=== PATIENT | female | born 1930 | race Caucasian/White ===

== ENCOUNTER 2018-04-01 10:14 | Emergency (ER) | payer OTHER ==
--- NOTE | 2018-04-01 11:14 | RAD REPORT ---
EXAM DESCRIPTION: RAD - Chest Single View - 04/01/2018 10:47 am CLINICAL HISTORY: Trauma, chest pain. COMPARISON: 07/24/2010 FINDINGS: Portable technique limits examination quality. Backboard artifact is present. Calcified breast implants are noted. The lungs are grossly clear. The heart is normal in size.
[2018-04-01 11:15] LABS: Absolute Monocytes 1.3 K/uL (0.1-1.3); Basophils % 0.5 % (0-1.3); Eosinophils % 1.6 % (0-4.4); Hematocrit 37.1 % (36.0-45.0); Lymphocytes % 15.8 % (15.3-44.8); MCH 32.6 pg (27.0-35.0); MPV 7.4 fL (7.6-11.3); Monocytes % 10.3 % (3.3-12.3); RBC Red Blood Cell Count 3.82 M/uL (3.86-4.86)
--- NOTE | 2018-04-01 11:16 | RAD REPORT ---
EXAM DESCRIPTION: RAD - Pelvis - 04/01/2018 10:44 am CLINICAL HISTORY: Trauma, pain COMPARISON: None. FINDINGS: AP pelvis, left hip and left femur-multiple projections. Bilateral hip arthroplasties are noted. Inferior to the femoral component stem on the left is an obli que fracture of the femoral shaft. The fracture is mildly displaced. No dislocation or additional fra cture identified.
--- NOTE | 2018-04-01 11:18 | ER ---
Nurse's Notes [facility] Name: Jannet Donis Age: 87 yrs Sex: Female : 1930 Arrival Date: 04/01/2018 Time: 10:10 Bed 3 Private MD: Diagnosis: Mid-shft left femur fracture Presentation: 04/01 10:06 Presenting complaint: EMS states: Pt had an unwitnessed fall from standing position, on sv EMS arrival left leg shortened and rotated outward. Pt stated that she was going around her bed and tripped on her bed. Pt denies head injury and LOC. A\\T\\O x2, pt's normal. Neurovascular WNL. 20 G L AC, Fentanyl 100 mcg total given and Zofran 4 mg IVP given. BS-124 BP 140/80. Care prior to arrival: Splint applied. traction splint to left leg applied by EMS. Medication(s) given: zofran 4 mg, Fentanyl 100 mcg IV initiated. 20 GA, in the left antecubital area, Glucose check: 124. Mechanism of Injury: Fall from standing position. Trauma event details: Injury occurred in the [facility], Injury occurred: at home. Injury occurred: April 01, 2018 Injury occurred at: 09:15. 10:06 Acuity: ROLLY 2 sv 10:06 Method Of Arrival: EMS: [facility] sv 10:06 Transition of care: patient was not received from another setting of care. Onset of sv symptoms was April 01, 2018. Risk Assessment: Do you want to hurt yourself or someone else? Patient reports no desire to harm self or others. Initial Sepsis Screen: Does the patient meet any 2 criteria? No. Patient's initial sepsis screen is negative. Does the patient have a suspected source of infection? No. Patient's initial sepsis screen is negative. Trauma Activation: Alert Physician: ED Physician; Name: ; Notified At: ; Arrived At: Physician: General Surgeon; Name: ; Notified At: ; Arrived At: Physician: Radiology; Name: ; Notified At: ; Arrived At: Physician: Respiratory; Name: ; Notified At: ; Arrived At: Physician: Lab; Name: ; Notified At: ; Arrived At: Historical: - Allergies: 10:20 No Known Allergies; sv - Home Meds: 10:20 hydroxyurea 500 mg Oral cap 1 cap every 3 days [Active]; Megace 400 mg/10 mL (40 mg/mL) sv Oral susp 5 mL once daily [Active]; midodrine 2.5 mg oral tab 1 tab 3 times per day [Active]; Hematinic Plus Vit/Minerals 106 mg iron- 1 mg oral tab 1 tab once daily [Active]; - PMHx: 10:20 ADD/ADHD; Cancer, Breast; Dementia; Depression; Hypertension; neuropathy; sv - PSHx: 10:20 defibrillator; bilateral mastectomy; sv - Social history:: Smoking status: Patient/guardian denies using tobacco. - Immunization history: Last tetanus immunization: unknown. - Ebola Screening: : Patient denies travel to an Ebola-affected area in the 21 days before illness onset. Screenin:19 Abuse screen: Denies threats or abuse. Nutritional screening: No deficits noted. tw2 Tuberculosis screening: No symptoms or risk factors identified. Fall Risk Secondary diagnosis (15 points) dementia. Primary Survey: 10:15 A: Airway: patent. Breathing/Chest: Respiratory pattern: regular, Respiratory effort: tw2 spontaneous, unlabored, Breath sounds: clear, bilaterally. Chest inspection: symmetrical rise and fall of the chest. Circulation: Heart tones present. Skin temperature: warm, dry. Disability Alert. 11:30 Reassessment Airway Airway Patent Breathing/Chest Respiratory pattern Regular tw2 Respiratory effort Spontaneous Unlabored Breath sounds Clear Chest inspection Symmetrical Circulation Heart tones Present Disability Alert. Secondary Survey: 10:15 HEENT: Face Other above right eyebrow swelling noted, pt states "cancer spot removed", tw2 did not hit head this fall. Gastrointestinal: No deficits noted. Abdomen is soft. : No deficits noted. Musculoskeletal: Reports pain in pelvis and left hip. Assessment: 10:15 General: Appears uncomfortable, slender, Behavior is calm, cooperative, appropriate for tw2 age. Pain: Complains of pain in left leg. Neuro: Level of Consciousness is awake, alert, obeys commands, Oriented to person, place. Cardiovascular: Denies chest pain, shortness of breath, Heart tones S1 S2 Capillary refill < 3 seconds Patient's skin is warm and dry. Respiratory: Airway is patent Respiratory effort is even, unlabored, Respiratory pattern is regular, symmetrical, Breath sounds are clear bilaterally. GI: No signs and/or symptoms were reported involving the gastrointestinal system. Abdomen is flat, Bowel sounds present X 4 quads. : No signs and/or symptoms were reported regarding the genitourinary system. EENT: No signs and/or symptoms were reported regarding the EENT system. Musculoskeletal: Range of motion: limited in left hip, left knee and left ankle Reports pain in left hip and left inguinal area and left femoral area. 11:25 Reassessment: Patient appears in no apparent distress at this time. No changes from tw2 previously documented assessment. Patient and/or family updated on plan of care and expected duration. Pain level reassessed. 12:25 Reassessment: Patient appears in no apparent distress at this time. No changes from tw2 previously documented assessment. Patient and/or family updated on plan of care and expected duration. Pain level reassessed. 13:00 Reassessment: Patient appears in no apparent distress at this time. No changes from tw2 previously documented assessment. Patient and/or family updated on plan of care and expected duration. Pain level reassessed. c/o pain, provider notified. 14:15 Reassessment: Patient appears in no apparent distress at this time. No changes from tw2 previously documented assessment. Patient and/or family updated on plan of care and expected duration. Pain level reassessed. Vital Signs: 10:14 BP 158 / 72; Pulse 74; Resp 18; Temp 98.(O); Pulse Ox 98% on R/A; Weight 52.16 kg; tw2 Height 5 ft. 4 in. (162.56 cm) (R); 10:52 BP 157 / 71; Pulse 67; Resp 19; Temp 98; Pulse Ox 97% ; sv 12:33 BP 161 / 63; Pulse 85; Resp 16; Pulse Ox 95% on R/A; tw2 12:59 BP 165 / 65; Pulse 88; Resp 17; Pulse Ox 95% on R/A; Pain 8/10; tw2 13:49 BP 138 / 68; Pulse 82; Resp 18; Pulse Ox 96% on 2 lpm NC; sv 14:15 BP 140 / 78; Pulse 84; Resp 16; Pulse Ox 97% on 2 lpm NC; tw2 10:14 Body Mass Index 19.74 (52.16 kg, 162.56 cm) tw2 Galilea Coma Score: 10:14 Eye Response: spontaneous(4). Verbal Response: oriented(5). Motor Response: obeys tw2 commands(6). Total: 15. Trauma Score (Adult): 10:14 Eye Response: spontaneous(1); Verbal Response: oriented(1); Motor Response: obeys tw2 commands(2); Systolic BP: > 89 mm Hg(4); Respiratory Rate: 10 to 29 per min(4); Galilea Score: 15; Trauma Score: 12 ED Course: 09:58 Maintain EMS IV. Dressing intact. Site clean \\T\\ dry. Gauge \\T\\ site: 20G L AC. sv 10:10 Patient arrived in ED. sv 10:10 Yosef Galvin MD is Attending Physician. kdr 10:10 phototypesetting equipment monitor on. Pulse ox on. NIBP on. sv 10:14 Aiyana Couch RN is Primary Nurse. tw2 10:15 Arm band placed on. tw2 10:17 Triage completed. sv 10:18 Patient maintains SpO2 saturation greater than 95% on room air. Thermoregulation: warm tw2 blanket given to patient. 10:21 Patient has correct armband on for positive identification. Bed in low position. Side sv rails up X2. 10:44 XRAY Chest (1 view) In Process Unspecified. EDMS 10:44 Hip Left 2 View XRAY In Process Unspecified. EDMS 10:44 Femur Left XRAY In Process Unspecified. EDMS 10:44 Pelvis XRAY In Process Unspecified. EDMS 10:44 X-ray completed. Patient tolerated procedure well. la2 10:50 Patient moved back from radiology. sv 10:50 Warm blanket given. sv 11:08 Rajan cath inserted, using sterile technique, 16 Fr., by ED staff, balloon inflated, to sv gravity drainage, urine specimen collected. returned clear yellow urine. Patient tolerated poorly. 11:53 CT completed. Patient tolerated procedure well. Patient moved back from CT. cw1 11:53 Head C Spine Cap Wo Con In Process Unspecified. EDMS 13:07 No provider procedures requiring assistance completed. Patient transferred, IV remains tw2 in place. 13:27 Report given to Amanda Tineo RN with [facility]. tw2 Administered Medications: 13:17 Drug: fentaNYL (PF) 50 mcg Route: IVP; Site: left antecubital; tw2 Intake: 10:14 PO: 0ml; Total: 0ml. tw2 Outcome: 11:17 ER care complete, transfer ordered by . kdr 13:02 Patient's length of stay in the Emergency Department was greater than 2 hours. pending tw2 transferPatient's length of stay extended due to 14:15 Transferred by ground EMS to [facility]. tw2 14:15 Condition: stable 14:15 Instructed on the need for transfer. 14:32 Patient left the ED. tw2 Addendum: 04/04/2018 08:26 Addendum: Culture Results: Positive urine culture. Phone call Attempt #1 transferring s s facility notified. NURA Doll RN. Signatures: Dispatcher [employer] EDMS Ivory Larson RN RN sv Yosef Galvin MD MD kdr Smirch, Shelby, RN RN April Ryan cw1 Aiyana Couch RN RN tw2 Josie Hess2 Corrections: (The following items were deleted from the chart) 04/01 11:07 10:52 BP 157 / 71; Pulse 67bpm; Resp 19bpm; Pulse Ox 97%; sv sv 13:01 13:00 Reassessment: Patient appears in no apparent distress at this time. No changes tw2 from previously documented assessment. Patient and/or family updated on plan of care and expected duration. Pain level reassessed. Patient is alert, oriented x 3, equal unlabored respirations, skin warm/dry/pink. tw2 13:23 12:33 BP 165 / 65; Pulse 87bpm; Resp 16bpm; Pulse Ox 94%; sv tw2 13:25 12:59 BP 165 / 65; Pulse 88bpm; Resp 17bpm; Pulse Ox 95% RA; tw2 tw2
--- NOTE | 2018-04-01 11:18 | EDPHYS ---
Physician Documentation [facility] Name: Jannet Donis Age: 87 yrs Sex: Female : 1930 Arrival Date: 04/01/2018 Time: 10:10 Bed 3 Private MD: ED Physician Yosef Galvin HPI: 04/01 10:11 This 87 yrs old Female presents to ER via Unassigned with complaints of Fall kdr Injury, Leg Injury. 10:11 The patient or guardian reports decreased range of motion, deformity, an injury, pain. kdr that occurred at home, sustained from a fall, from a standing position, was making her way around her bed when she fell - denies LOC or head injury, the left lower extremity is shortened, The patient is not able to ambulate. Patient is not able to bear weight. The complaints affect the left femoral area, left inguinal area and left hip. Onset: The symptoms/episode began/occurred just prior to arrival. Modifying factors: The symptoms are alleviated by nothing, the symptoms are aggravated by any movement. Associated signs and symptoms: Loss of consciousness: the patient experienced no loss of consciousness, Pertinent positives: None. Pertinent negatives: abdominal pain, altered mental status, headache, incontinence, shortness of breath, vomiting, weakness. Severity of symptoms: At their worst the symptoms were moderate, severe, incapacitating, just prior to arrival, in the emergency department the symptoms are unchanged. The patient has not experienced similar symptoms in the past. It is unknown whether or not the patient has recently seen a physician. The patient was placed in a traction splint by EMS which improved her pain. She was also given 100 mcg of fentanyl and Zofran CHIMNEY SWEEPER. Historical: - Allergies: 10:20 No Known Allergies; sv - Home Meds: 10:20 hydroxyurea 500 mg Oral cap 1 cap every 3 days [Active]; Megace 400 mg/10 mL (40 mg/mL) sv Oral susp 5 mL once daily [Active]; midodrine 2.5 mg oral tab 1 tab 3 times per day [Active]; Hematinic Plus Vit/Minerals 106 mg iron- 1 mg oral tab 1 tab once daily [Active]; - PMHx: 10:20 ADD/ADHD; Cancer, Breast; Dementia; Depression; Hypertension; neuropathy; sv - PSHx: 10:20 defibrillator; bilateral mastectomy; sv - Social history:: Smoking status: Patient/guardian denies using tobacco. - Immunization history: Last tetanus immunization: unknown. - Ebola Screening: : Patient denies travel to an Ebola-affected area in the 21 days before illness onset. ROS: 10:11 Constitutional: Negative for fever, chills, and weight loss, Eyes: Negative for injury, kdr pain, redness, and discharge, ENT: Negative for injury, pain, and discharge, Neck: Negative for injury, pain, and swelling, Cardiovascular: Negative for chest pain, palpitations, and edema, Respiratory: Negative for shortness of breath, cough, wheezing, and pleuritic chest pain, Abdomen/GI: Negative for abdominal pain, nausea, vomiting, diarrhea, and constipation, Back: Negative for injury and pain, : Negative for injury, bleeding, discharge, and swelling, Skin: Negative for injury, rash, and discoloration, Neuro: Negative for headache, weakness, numbness, tingling, and seizure activity. Psych: Negative for depression, anxiety, suicide ideation, homicidal ideation, and hallucinations, Allergy/Immunology: Negative for hives, rash, and allergies, Endocrine: Negative for neck swelling, polydipsia, polyuria, polyphagia, and marked weight changes, Hematologic/Lymphatic: Negative for swollen nodes, abnormal bleeding, and unusual bruising. 10:11 MS/extremity: Positive for injury or acute deformity, decreased range of motion, pain, tenderness, of the left inguinal area and left hip, She was n/v intact on initial exam distal to the possible fracture and injury. Exam: 12:31 Constitutional: This is a well developed, well nourished patient who is awake, alert, kdr and in mild distress. Head/Face: Normocephalic, atraumatic. ( the patient states that she has a cancerous lesion that is being treated on her right forehead Eyes: Pupils equal round and reactive to light, extra-ocular motions intact. Lids and lashes normal. Conjunctiva and sclera are non-icteric and not injected. Cornea within normal limits. Periorbital areas with no swelling, redness, or edema. Neck: Trachea midline, no thyromegaly or masses palpated, and no cervical lymphadenopathy. Supple, full range of motion without nuchal rigidity, or vertebral point tenderness. No Meningismus. Chest/axilla: Normal chest wall appearance and motion. Nontender with no deformity. No lesions are appreciated. Cardiovascular: Regular rate and rhythm with a normal S1 and S2. No gallops, murmurs, or rubs. Normal PMI, no JVD. No pulse deficits. Respiratory: Lungs have equal breath sounds bilaterally, clear to auscultation and percussion. No rales, rhonchi or wheezes noted. No increased work of breathing, no retractions or nasal flaring. Abdomen/GI: Soft, non-tender, with normal bowel sounds. No distension or tympany. No guarding or rebound. No evidence of tenderness throughout. Back: No spinal tenderness. No costovertebral tenderness. Full range of motion. Neuro: Awake and alert, GCS 15, oriented to person, place, time, and situation. Cranial nerves II-XII grossly intact. Motor strength 5/5 in all extremities. Sensory grossly intact. Cerebellar exam normal. Normal gait. Psych: Awake, alert, with orientation to person, place and time. Behavior, mood, and affect are within normal limits. 12:31 Musculoskeletal/extremity: Extremities: The left leg is in a traction splint. Distal circulation and neurological status are good. Vital Signs: 10:14 BP 158 / 72; Pulse 74; Resp 18; Temp 98.(O); Pulse Ox 98% on R/A; Weight 52.16 kg; tw2 Height 5 ft. 4 in. (162.56 cm) (R); 10:52 BP 157 / 71; Pulse 67; Resp 19; Temp 98; Pulse Ox 97% ; sv 12:33 BP 161 / 63; Pulse 85; Resp 16; Pulse Ox 95% on R/A; tw2 12:59 BP 165 / 65; Pulse 88; Resp 17; Pulse Ox 95% on R/A; Pain 8/10; tw2 13:49 BP 138 / 68; Pulse 82; Resp 18; Pulse Ox 96% on 2 lpm NC; sv 14:15 BP 140 / 78; Pulse 84; Resp 16; Pulse Ox 97% on 2 lpm NC; tw2 10:14 Body Mass Index 19.74 (52.16 kg, 162.56 cm) tw2 Lithia Coma Score: 10:14 Eye Response: spontaneous(4). Verbal Response: oriented(5). Motor Response: obeys tw2 commands(6). Total: 15. Trauma Score (Adult): 10:14 Eye Response: spontaneous(1); Verbal Response: oriented(1); Motor Response: obeys tw2 commands(2); Systolic BP: > 89 mm Hg(4); Respiratory Rate: 10 to 29 per min(4); Galilea Score: 15; Trauma Score: 12 MDM: 11:17 Patient medically screened. kdr 11:25 Physician consultation: Jared Springer MD was called at 11:00, was contacted at 11:00, kdr regarding consult, patient's condition, after a discussion of the case, a recommendation for transfer for higher level of care is made, States that we do not have the facilities to manage this type of fracture involving the prosthetic hip. 12:31 Data reviewed: vital signs, nurses notes, lab test result(s), radiologic studies. kdr Counseling: I had a detailed discussion with the patient and/or guardian regarding: the historical points, exam findings, and any diagnostic results supporting the discharge/admit diagnosis, lab results, radiology results, the need to transfer to another facility. 04/01 10:27 Order name: Basic Metabolic Panel; Complete Time: 12:05 kdr 04/01 10:27 Order name: CBC with Diff; Complete Time: 12:05 kdr 04/01 10:27 Order name: Creatinine for Radiology; Complete Time: 12:05 kdr 04/01 10:27 Order name: Type And Screen; Complete Time: 12:47 kdr 04/01 11:08 Order name: Urine Microscopic Only jb1 04/01 11:08 Order name: Urine Culture jb1 04/01 10:27 Order name: XRAY Chest (1 view); Complete Time: 12:05 kdr 04/01 10:27 Order name: Labs collected and sent; Complete Time: 11:08 kdr 04/01 10:27 Order name: Hip Left 2 View XRAY kdr 04/01 10:27 Order name: Femur Left XRAY kdr 04/01 10:27 Order name: Pelvis XRAY; Complete Time: 12:05 kdr 04/01 11:26 Order name: Head C Spine Cap Wo Con; Complete Time: 12:47 EDMS 04/01 11:47 Order name: Urine Dipstick--Ancillary (enter results); Complete Time: 12:47 bd 04/01 10:27 Order name: Urine Dipstick-Ancillary (obtain specimen); Complete Time: 11:08 kdr 04/01 11:11 Order name: Mohini; Complete Time: 11:11 tw2 Administered Medications: 13:17 Drug: fentaNYL (PF) 50 mcg Route: IVP; Site: left antecubital; tw2 Disposition: 04/01/18 11:17 Transfer ordered to [facility]. Diagnosis is Mid-shft left femur fracture. - Reason for transfer: Higher level of care. - Accepting physician is Vincenzo Parnell. - Condition is Stable. - Problem is new. - Symptoms have improved. Signatures: Dispatcher [employer] EDIvory Doe RN RN sv Yosef Galvin MD MD kdr Aiyana Couch RN RN tw2 Corrections: (The following items were deleted from the chart) 12:31 11:17 04/01/2018 11:17 Transfer ordered to [facility]. Diagnosis is kdr Mid-shft left femur fracture. Reason for transfer: Higher level of care. Accepting physician is Daxin. Condition is Stable. Problem is new. Symptoms have improved. kdr 12:49 12:31 04/01/2018 11:17 Transfer ordered to [facility]. Diagnosis is kdr Mid-shft left femur fracture. Reason for transfer: Higher level of care. Accepting physician is Ortho/Medicine. Condition is Stable. Problem is new. Symptoms have improved. kdr 14:32 12:49 04/01/2018 11:17 Transfer ordered to [facility]. Diagnosis is tw2 Mid-shft left femur fracture. Reason for transfer: Higher level of care. Accepting physician is Vincenzo Parnell. Condition is Stable. Problem is new. Symptoms have improved. kdr
[2018-04-01 11:25] LABS: Potassium 3.7 mEq/L (3.6-5.0)
--- NOTE | 2018-04-01 12:21 | RAD REPORT ---
EXAM DESCRIPTION: CT - Head C Spine Cap Wo Con - 04/01/2018 11:53 am CLINICAL HISTORY: Trauma, head and neck injury. Chest, abdomen and pelvis pain. COMPARISON: None. TECHNIQUE: CT head without contrast. CT cervical spine without contrast with coronal and sagittal reformatted images. CT chest, abdomen and pelvis without contrast with coronal and sagittal reformatted images of the [facility]. All CT scans are performed using dose optimization technique as appropriate and may include automated exposure control or mA/KV adjustment according to patient size. FINDINGS: CT HEAD WITHOUT CONTRAST: No intracranial hemorrhage, hydrocephalus or extra-axial fluid collection. Moderate generalized brain atrophy is present with moderate periventricular and deep white matter chronic microvascular ischemi c changes. No areas of brain edema or midline shift. The paranasal sinuses and mastoids are clear. The calvarium is intact. CT CERVICAL SPINE WITHOUT CONTRAST: No fracture or subluxation. Diffuse cervical spondylosis is noted. The prevertebral soft tissues are normal in thickness. CT CHEST, ABDOMEN, PELVIS WITHOUT CONTRAST: NOTE: Lack of contrast is a significant limitation in the assessment of trauma related findings. Spec ifically, solid organ, vascular and bowel evaluation is significantly limited. Emphysematous changes are present with scarring in the right apex.Small hiatal hernia.No pneumothorax or pericardial/pleural fluid. No evidence of intra-abdominal visceral injury, free fluid or free air is seen within the above detai led limitations. Gallstones are noted. Advanced colonic diverticulosis is seen without diverticulitis. Mild wedge compression deformity of T12 is noted with sclerosis, age undetermined but favored to be c hronic. IMPRESSION: Mild wedge compression deformity of T12 vertebral body with sclerosis, favored to be chr onic. If the patient has significant back pain, MR follow-up may be useful for further assessment. Cholelithiasis. Significant diverticulosis coli without diverticulitis.
[2018-04-01 12:43] LABS: Urine Blood NEGATIVE (NEG); Urine Glucose NEGATIVE (NEG); Urine Protein 1+ (NEG); Urine Specific Gravity >1.030 (1.005-1.030); Urine pH 5.5 (5.0-7.0)
[2018-04-01 13:02] LABS: Urine Bacteria 20-50 /HPF (<20); Urine Culture Reflex Order REFLEXED; Urine RBC <5 /HPF (NONE SEEN)
[2018-04-01] MEDS ORDERED: FENTANYL CITR 100 MCG/2 ML ONE (13:17)
[2018-04-01 14:39] VITALS: TEMP 98
[2018-04-01 14:44] VITALS: BP 138/68; O2SAT 96
--- NOTE | 2018-04-03 08:57 | RAD REPORT ---
EXAM DESCRIPTION: RAD - Hip Left 2 View - 04/01/2018 10:44 am CLINICAL HISTORY: Trauma, pain COMPARISON: None. FINDINGS: AP pelvis, left hip and left femur-multiple projections. Bilateral hip arthroplasties are noted. Inferior to the femoral component stem on the left is an obli que fracture of the femoral shaft. The fracture is mildly displaced. No dislocation or additional fra cture identified.
--- NOTE | 2018-04-03 08:58 | RAD REPORT ---
EXAM DESCRIPTION: RAD - Femur Left - 04/01/2018 10:44 am CLINICAL HISTORY: Trauma, pain COMPARISON: None. FINDINGS: AP pelvis, left hip and left femur-multiple projections. Bilateral hip arthroplasties are noted. Inferior to the femoral component stem on the left is an obli que fracture of the femoral shaft. The fracture is mildly displaced. No dislocation or additional fra cture identified.
== END 2018-04-01 14:32 | disposition short-term general hospital (02) ==
LOC: ER 10:14
DX: S72.302A Unspecified fracture of shaft of left femur, initial encounter for closed fracture (principal); W18.30XA Fall on same level, unspecified, initial encounter; Y93.89 Activity, other specified; Y92.003 Bedroom of unspecified non-institutional (private) residence as the place of occurrence of the external cause; I10 Essential (primary) hypertension; F32.9 Major depressive disorder, single episode, unspecified; Z85.3 Personal history of malignant neoplasm of breast; F03.90 Unspecified dementia, unspecified severity, without behavioral disturbance, psychotic disturbance, mood disturbance, and anxiety; Z90.13 Acquired absence of bilateral breasts and nipples
CPT/HCPCS: 36415; 51702; 70450; 71045; 71250; 72125; 72170; 73502; 73552; 80048; 85025; 86850; 86900; 86901; 87077; 87086; 87088; 87186; 96374; 99285; J3010; 81003; 81015

== ENCOUNTER 2018-06-09 06:00 | Day surgery (SDC) | payer OTHER ==
[2018-06-08 11:47] LABS: Absolute Lymphocytes (CBC) 1.2 K/uL (0.7-4.9); Absolute Monocytes 0.8 K/uL (0.1-1.3); Absolute Neutrophil 7.1 K/uL (1.8-8.0); Basophils % 0.5 % (0-1.3); Eosinophils % 0.7 % (0-4.4); Hematocrit 32.2 % (36.0-45.0); Lymphocytes % 13.1 % (15.3-44.8); MCH 30.8 pg (27.0-35.0); MCV 92.4 fL (80-100); MPV 7.2 fL (7.6-11.3); Monocytes % 8.2 % (3.3-12.3); RBC Red Blood Cell Count 3.49 M/uL (3.86-4.86)
[2018-06-08 12:00] LABS: Potassium 3.6 mmol/L (3.5-5.1)
--- NOTE | 2018-06-08 12:47 | EKG ---
Test Date: 2018-06-08 Test Time: 10:06:20 Steam Cleaning Machine Operator: PARUL MEASUREMENT RESULTS: Intervals: Rate: 70 SD: 162 QRSD: 124 QT: 470 QTc: 507 [place]: P: 39 SD: 162 QRS: -45 T: 22 INTERPRETIVE STATEMENTS: Normal sinus rhythm Right bundle branch block Left anterior fascicular block Bifascicular block Abnormal ECG Compared to ECG 04/06/2017 12:43:38 Right bundle-branch block now present Bifascicular block now present Incomplete right bundle-branch block no longer present Electronically Signed On 06-08-18 12:46:52 CDT by Ashvin Christianson
[2018-06-09] MEDS ORDERED: CEFAZOLIN/SWI 1gm 1 GM/10 ML SYR ONE (06:42)
[2018-06-09] MEDS ORDERED: Ringers Lactate 1,000 ML IV ONE (06:42)
--- NOTE | 2018-06-09 07:52 | P.BOP ---
Preoperative diagnosis: right knee pain with mechanical sx Postoperative diagnosis: same Primary procedure: right knee arthoscopy with MM/LM debridement Estimated blood loss: 10 cc Anesthesia: General Complications: None Transferred to: Recovery Room Condition: Good
[2018-06-09] MEDS: MORPHINE 4 MG/ML SYR ONE ×4 (07:55→08:10)
[2018-06-09] MEDS ORDERED: BUPIVACA 0.5%/EPI 0.0005%/PF 30 ML VIAL ONE (08:07)
[2018-06-09] MEDS: MEPERIDINE HCL 50 MG/ML AMP ONE ×2 (08:18→08:27)
[2018-06-09 08:39] VITALS: O2SAT 100
[2018-06-09] MEDS ORDERED: TRAMADOL 37.5mg/APAP 325mg PER TAB ONE (09:21)
[2018-06-09 09:25] VITALS: BP 128/65; TEMP 97
--- NOTE | 2018-06-09 13:13 | OP ---
Date of Procedure: 06/09/2018 Surgeon: Chico Davidson MD Preoperative Diagnosis: Right knee pain with mechanical symptoms despite conservative care, probable meniscal tears. Postoperative Diagnoses: 1.Grade 4 arthritic changes of lateral compartment with displaceable lateral meniscal tears. 2.Medial meniscal tear. Procedure: Debridement of both medial and lateral meniscal tears. Estimated Blood Loss: Less than 10 cc. Complications: There were no complications. Specimens: No pathology specimens sent. Indication For Operation: Ms. Donis is an 87-year-old female, who came to see me with significant c omplaints of pain in the right knee. This began after she received injury where she was pushing hers elf away from the table. X-rays failed to demonstrate any fractures or dislocations; however, the pa tient continued to complain of pain. She does have some arthritic changes and has been treated with injections without significant relief of symptoms. Also, medications have been used and activity res trictions. Unfortunately, her knee was so painful, it was very difficult for her to sleep, very diff icult for her to control it in anyway. She had an MRI, which demonstrated predicted meniscal tear or tears and we spoke with her son quite extensively about her advanced age, but at this point, she yenny lly could not have total knee arthroplasty, but opts for anything which could help. Therefore, arthr oscopy was offered and later options carefully and agrees to proceed. Description Of Procedure: The patient was taken to the operating room and placed in supine position. General anesthesia was obtained by staff. Following this, a well-padded tourniquet was placed on s uperior right thigh and was not used throughout the case. Right lower extremity was then prepped and draped in usual sterile fashion and was followed by placement of a superior medial arthroscopy kelli l atraumatically with 1 pass with liberation of approximately 60 cc of rather normal-appearing synovi al fluid. This was followed by placement of inferolateral arthroscopy portal. The knee was then seq uentially examined including suprapatellar pouch, medial gutters, medial compartments as well as the notch and patellofemoral joint. Pertinent findings included a tear of the anterior horn of the media l meniscus, also grade 4 chondromalacia of the lateral compartment, and also complex displaced tears in the lateral meniscus. A standard inferior medial arthroscopy portal was then placed under direct vision and was again observed all the areas with debridement of the medial and lateral menisci being performed until these are both debrided back to firm and stable on well contoured basis. The knee wa s again examined and all the above areas without any further pathology seen, which is amenable to art hroscopic intervention. The inferior arthroscopy portals were then stapled. Superior and medial art hroscopy portal was used for placement of Marcaine with epinephrine and this was then stapled. The p atient was then placed in a very well-padded sterile dressing, awakened, and taken to recovery room i n good condition. There were no complications. /BANDAR Voice ID: [id number] Report ID: [id number]
== END 2018-06-09 10:23 | disposition home or self-care (01) ==
LOC: OR 06:00
PROVIDERS: ATTEND Orthopaedic Surgery
PROC: 0SBC4ZZ Excision of Right Knee Joint, Percutaneous Endoscopic Approach (ICD-10-PCS; principal; 2018-06-09 07:00)
DX: S83.241A Other tear of medial meniscus, current injury, right knee, initial encounter (principal); S83.281A Other tear of lateral meniscus, current injury, right knee, initial encounter; F03.90 Unspecified dementia, unspecified severity, without behavioral disturbance, psychotic disturbance, mood disturbance, and anxiety; X58.XXXA Exposure to other specified factors, initial encounter; Y93.89 Activity, other specified; Y92.9 Unspecified place or not applicable; Y99.9 Unspecified external cause status
CPT/HCPCS: 01400; 29880; 36415; 80048; 85025; 93005; J0690; J2175

== ENCOUNTER 2018-06-26 10:45 | Emergency (ER) | payer OTHER ==
--- NOTE | 2018-06-26 12:37 | ER ---
Nurse's Notes [facility] Name: Jannet Donis Age: 87 yrs Sex: Female : 1930 Arrival Date: 06/26/2018 Time: 10:48 Bed 2 Private MD: Enzo Ma Diagnosis: Presentation: 06/26 11:01 Presenting complaint: Patient states: I feel two weeks ago, pain in tona hips and lower ch legs. Child states: TWO ARTIFICIAL HIPS, TWO WEEKS AGO DR MOLINA DID A SCOPE ON HER KNEE. TWO DAYS AFTER THAT SHE FELL. STILL HAVING LOWER BACK AND HIP PAIN, BUT THAT IS CHRONIC. BUT IM WORRIED BECAUSE SHE IS IN BED TOO MUCH AND NOT WALKING MUCH. HER FOLLOW UP WITH ST[facility] WAS THIS MORNING. HER KNEE IS FINE, HE SUGGESTED SHE GET AN X RAY AND CT OF LOWER BACK. Care prior to arrival: None. Mechanism of Injury: Fall FELL FROM STANDING POSITION ON TO BUTTOCKS. Trauma event details: Injury occurred in the [facility], Injury occurred: at home. Injury occurred: June 16, 2018 Injury occurred at: 14:00. 11:01 Acuity: ROLLY 3 ch 11:01 Method Of Arrival: Wheelchair 11:08 Transition of care: patient was not received from another setting of care. Onset of ch symptoms was June 16, 2018. Risk Assessment: Do you want to hurt yourself or someone else? Patient reports no desire to harm self or others. Initial Sepsis Screen: Does the patient meet any 2 criteria? No. Patient's initial sepsis screen is negative. Does the patient have a suspected source of infection? No. Patient's initial sepsis screen is negative. 12:37 Note reported that pt went back to [facility]'s office. She was seen there this morning. dm5 Trauma Activation: Not Applicable Physician: ED Physician; Name: ; Notified At: ; Arrived At: Physician: General Surgeon; Name: ; Notified At: ; Arrived At: Physician: Radiology; Name: ; Notified At: ; Arrived At: Physician: Respiratory; Name: ; Notified At: ; Arrived At: Physician: Lab; Name: ; Notified At: ; Arrived At: Historical: - Allergies: 11:06 No Known Allergies; ch - Home Meds: 11:06 bupropion HCl 300 mg Oral Tb24 1 tab twice a day [Active]; Cerovite Senior Oral tab ch daily [Active]; diclofenac 2% cream twice a day [Active]; donepezil 10 mg Oral TbDL 1 tab once daily [Active]; escitalopram oxalate 20 mg Oral tab 1 tab once daily [Active]; Floranex 1 million cell Oral tab three times a day [Active]; Foltanx RF 3 mg-35 mg-2 mg -90.314 mg Oral cap daily [Active]; gabapentin 300 mg Oral cap 1 cap 3 times per day [Active]; Hematinic Plus Vit/Minerals 106 mg iron- 1 mg Oral tab 1 tab once daily [Active]; hydroxyurea 500 mg Oral cap 1 cap every 3 days [Active]; Megace 400 mg/10 mL (40 mg/mL) Oral susp 5 mL once daily [Active]; midodrine 2.5 mg Oral tab 1 tab 3 times per day [Active]; omeprazole 40 mg Oral cpDR 1 cap once daily [Active]; propranolol 5 mg Oral tab once daily [Active]; tizanidine 4 mg Oral tab 1 tab at bedtime [Active]; Tramadol Oral every 6 hours [Active]; - PMHx: 11:06 ADD/ADHD; Cancer, Breast; Dementia; Depression; Hypertension; neuropathy; ch - PSHx: 11:06 bilateral mastectomy; TONA HIP REPLACEMENT; R KNEE SCOPE; FEMUR FX; ch - Immunization history: Last tetanus immunization: - up to date. - Social history:: Smoking status: Patient/guardian denies using tobacco. - Ebola Screening: : Patient negative for fever greater than or equal to 101.5 degrees Fahrenheit, and additional compatible Ebola Virus Disease symptoms Patient denies exposure to infectious person Patient denies travel to an Ebola-affected area in the 21 days before illness onset No symptoms or risks identified at this time. Screenin:06 Abuse screen: Denies threats or abuse. Denies injuries from another. Tuberculosis ch screening: No symptoms or risk factors identified. Primary Survey: 11:06 A: Airway: patent. Breathing/Chest: Respiratory pattern: regular. Circulation: Skin ch color: pink. Disability Alert. Secondary Survey: 11:06 HEENT: No deficits noted. Gastrointestinal: No deficits noted. Musculoskeletal: Reports ch pain in pelvis and back and right hip and left hip and low back area. Assessment: 11:01 General: Appears in no apparent distress. comfortable, Behavior is calm, cooperative, ch appropriate for age. Pain: Complains of pain in low back area, left hip and right hip. Vital Signs: 11:06 BP 105 / 50; Pulse 88; Resp 22; Temp 99.1; Pulse Ox 99% on R/A; Weight 49.9 kg; Height ch 5 ft. 4 in. (162.56 cm); Pain 8/10; 11:06 Body Mass Index 18.88 (49.90 kg, 162.56 cm) ch [place] Coma Score: 11:06 Eye Response: spontaneous(4). Verbal Response: oriented(5). Motor Response: obeys commands(6). Total: 15. Trauma Score (Adult): 11:06 Eye Response: spontaneous(1); Verbal Response: oriented(1); Motor Response: obeys commands(2); Systolic BP: > 89 mm Hg(4); Respiratory Rate: 10 to 29 per min(4); [place] Score: 15; Trauma Score: 12 ED Course: 10:48 Patient arrived in ED. sb2 10:49 Enzo Ma MD is Private Physician. sb2 11:04 Triage completed. ch 11:06 Patient has correct armband on for positive identification. ch 11:06 Patient maintains SpO2 saturation greater than 95% on room air. Thermoregulation: warm blanket given to patient. 11:08 Arm band placed on left wrist. Patient placed in waiting room. ch 12:35 Nikos Mckeon MD is Attending Physician. deya 12:36 Patient's name was called from ER lobby. No response. dm5 Administered Medications: No medications were administered Intake: 11:06 PO: 0ml; Total: 0ml. ch Outcome: 12:38 Patient left the ED. dm5 Signatures: Kaila Davis, RN RN Soheila Alvarez RN RN dm5 Anderson, Corey, MD MD cha Billeau, Sheri sb2 Corrections: (The following items were deleted from the chart) 11:06 11:06 PSHx: defibrillator; ch
[2018-06-26 12:54] VITALS: BP 105/50; TEMP 99.1; O2SAT 99
== END 2018-06-26 12:38 | disposition left against medical advice (07) ==
LOC: ER 10:45
DX: Z53.21 Procedure and treatment not carried out due to patient leaving prior to being seen by health care provider (principal)
CPT/HCPCS: 99283

== ENCOUNTER 2018-07-17 21:15 | Emergency (ER) | payer OTHER ==
--- NOTE | 2018-07-17 21:44 | RAD REPORT ---
EXAM DESCRIPTION: CT - Head Brain Wo Cont - 07/17/2018 9:36 pm CLINICAL HISTORY: TRAUMA COMPARISON: No comparisons TECHNIQUE: All CT scans are performed using dose optimization technique as appropriate and may inclu de automated exposure control or mA/KV adjustment according to patient size. FINDINGS: No intracranial hemorrhage, hydrocephalus or extra-axial fluid collection.Moderate general ized brain atrophy is present with advanced periventricular and deep white matter chronic microvascul ar ischemic changes.No areas of brain edema or evidence of midline shift. The paranasal sinuses and mastoids are clear. The calvarium is intact. IMPRESSION: No acute intracranial abnormality.
[2018-07-17] MEDS ORDERED: LIDOCAINE 1% MPF 2 ML AMPULE ONE (21:53)
[2018-07-17] MEDS ORDERED: LIDOCAINE 1% W/EPI 1:100,000 MDV 50 ML VIAL ONE (22:15)
--- NOTE | 2018-07-17 22:52 | ER ---
Nurse's Notes [facility] Name: Jannet Donis Age: 87 yrs Sex: Female : 1930 Arrival Date: 07/17/2018 Time: 21:16 Bed 4 Private MD: Diagnosis: Laceration without foreign body of scalp Presentation: 07/17 21:17 Presenting complaint: Patient states: I stood up and tripped over my walker and hit my tl2 head on the cabinet. Pt denies dizziness or pain. Small laceration sustained to left side of forehead, bleeding controlled. Pt AOx4. Care prior to arrival: None. Mechanism of Injury: Fall from standing position. Trauma event details: Injury occurred in the [facility]. 21:17 Acuity: ROLLY 3 tl2 21:17 Method Of Arrival: EMS: [facility] tl2 21:29 Transition of care: patient was received from another setting of care (long-term care 2 facility), [facility]. Onset of symptoms was July 17, 2018 at 20:30. Risk Assessment: Do you want to hurt yourself or someone else? Patient reports no desire to harm self or others. Initial Sepsis Screen: Does the patient meet any 2 criteria? No. Patient's initial sepsis screen is negative. Does the patient have a suspected source of infection? No. Patient's initial sepsis screen is negative. Trauma Activation: Physician: ED Physician; Name: Mike; Notified At: 21:18; Arrived At: Physician: General Surgeon; Name: ; Notified At: 21:18; Arrived At: Physician: Radiology; Name: ; Notified At: 21:18; Arrived At: Physician: Respiratory; Name: ; Notified At: 21:18; Arrived At: Physician: Lab; Name: ; Notified At: 21:18; Arrived At: Historical: - Allergies: 21:28 No Known Allergies; tl2 - Home Meds: 21:28 bupropion HCl 300 mg Oral Tb24 1 tab twice a day [Active]; Cerovite Senior Oral tab tl2 daily [Active]; diclofenac 2% cream twice a day [Active]; donepezil 10 mg Oral TbDL 1 tab once daily [Active]; escitalopram oxalate 20 mg Oral tab 1 tab once daily [Active]; Floranex 1 million cell Oral tab three times a day [Active]; Foltanx RF 3 mg-35 mg-2 mg -90.314 mg Oral cap daily [Active]; gabapentin 300 mg Oral cap 1 cap 3 times per day [Active]; Hematinic Plus Vit/Minerals 106 mg iron- 1 mg Oral tab 1 tab once daily [Active]; hydroxyurea 500 mg Oral cap 1 cap every 3 days [Active]; Megace 400 mg/10 mL (40 mg/mL) Oral susp 5 mL once daily [Active]; midodrine 2.5 mg Oral tab 1 tab 3 times per day [Active]; omeprazole 40 mg Oral cpDR 1 cap once daily [Active]; propranolol 5 mg Oral tab once daily [Active]; tizanidine 4 mg Oral tab 1 tab at bedtime [Active]; Tramadol Oral every 6 hours [Active]; - PMHx: 21:28 ADD/ADHD; Cancer, Breast; Dementia; Depression; Hypertension; neuropathy; tl2 - Immunization history: Last tetanus immunization: unknown. - Social history:: Smoking status: Patient/guardian denies using tobacco. - Ebola Screening: : No symptoms or risks identified at this time. - Social history: Denies using. Screenin:24 Abuse screen: Denies threats or abuse. Nutritional screening: No deficits noted. tl2 Tuberculosis screening: No symptoms or risk factors identified. Fall risk At risk due to age, prior history of falls. 21:30 Fall Risk Fall in past 12 months (25 points). Secondary diagnosis (15 points) dementia, cc3 No IV (0 pts). Ambulatory Aid- Crutches/Cane/Walker (15 pts). Gait- Weak (10 pts.). Mental Status- Oriented to own ability (0 pts). Total Watson Fall Scale indicates High Risk Score (45 or more points). Fall prevention measures have been instituted. Side Rails Up X 2 Placed Close to Nursing Station Frequent Obs/Assessments Occuring Family Present and informed to notify staff if the need to leave the bedside As available patient and family educated on Fall Prevention Program and Strategies. Primary Survey: 21:17 A: Airway: patent. Breathing/Chest: Respiratory pattern: regular, Respiratory effort: tl2 spontaneous, unlabored, Breath sounds: clear, Chest inspection: symmetrical rise and fall of the chest. Circulation: Heart tones present. Skin color: pink. Disability Alert. 22:15 Reassessment Airway Airway Patent Breathing/Chest Respiratory pattern Regular tl2 Respiratory effort Spontaneous Unlabored Circulation Pulses Palpable Color [place] Disability Alert. Secondary Survey: 21:17 HEENT: Head Other laceration to left side of forehead. Gastrointestinal: No deficits tl2 noted. : No deficits noted. Musculoskeletal: No signs and/or symptoms reported regarding the musculoskeletal system. Range of motion: intact in all extremities. Injury Description: Laceration. Assessment: 21:17 General: Appears in no apparent distress. comfortable, Behavior is calm, cooperative, tl2 appropriate for age. Pain: Denies pain. Neuro: Level of Consciousness is awake, alert, obeys commands, Oriented to person, place, time, situation. Cardiovascular: Denies chest pain. Respiratory: Airway is patent Respiratory effort is even, unlabored, Respiratory pattern is regular, symmetrical. GI: No signs and/or symptoms were reported involving the gastrointestinal system. : No signs and/or symptoms were reported regarding the genitourinary system. Derm: Skin is pink, warm \T\ dry. Injury Description: Laceration sustained to forehead is clean, 0.5 to 2.5 cm long, not bleeding, was sustained 30-60 minutes ago. a small amount of bleeding noted at this time. 21:20 Reassessment: PT TO CT WITH [employer]. cc3 22:23 Reassessment: Patient appears in no apparent distress at this time. Patient and/or tl2 family updated on plan of care and expected duration. Pain level reassessed. Patient is alert, oriented x 3, equal unlabored respirations, skin warm/dry/pink. laceration tray set up, Awaiting PA for repair. 23:07 Reassessment: PT D/C HOME VIA W/C WITH FAMILY, DX WITH HEAD LACERATION. cc3 Vital Signs: 21:24 BP 151 / 66; Pulse 77; Resp 18; Temp 99.2(O); Pulse Ox 95% on R/A; Weight 65.77 kg; tl2 Height 5 ft. 3 in. (160.02 cm); Pain 0/10; 22:20 BP 166 / 65; Pulse 74; Resp 18; Pulse Ox 95% on R/A; tl2 21:24 Body Mass Index 25.69 (65.77 kg, 160.02 cm) tl2 Galile[place] Coma Score: 21:24 Eye Response: spontaneous(4). Verbal Response: oriented(5). Motor Response: obeys tl2 commands(6). Total: 15. 22:20 Eye Response: spontaneous(4). Verbal Response: oriented(5). Motor Response: obeys tl2 commands(6). Total: 15. Trauma Score (Adult): 21:24 Eye Response: spontaneous(1); Verbal Response: oriented(1); Motor Response: obeys tl2 commands(2); Systolic BP: > 89 mm Hg(4); Respiratory Rate: 10 to 29 per min(4); [place] Score: 15; Trauma Score: 12 22:20 Eye Response: spontaneous(1); Verbal Response: oriented(1); Motor Response: obeys tl2 commands(2); Systolic BP: > 89 mm Hg(4); Respiratory Rate: 10 to 29 per min(4); [place] Score: 15; Trauma Score: 12 ED Course: 21:16 Patient arrived in ED. rg2 21:16 Soledad Cline, SHERRIE is Primary Nurse. tl2 21:17 Tanmay Madrigal PA is PHCP. jr8 21:17 Nikos Mckeon MD is Attending Physician. jr8 21:19 Triage completed. tl2 21:[address] via stretcher. vm2 21:24 Patient has correct armband on for positive identification. Bed in low position. Call tl2 light in reach. Side rails up X2. Patient maintains SpO2 saturation greater than 95% on room air. 21:24 Patient maintains SpO2 saturation greater than 95% on room air. tl2 21:31 Thermoregulation: warm blanket given to patient. tl2 21:32 Arm band placed on right wrist. tl2 21:34 CT completed. Patient tolerated procedure well. Patient moved back from CT. vm2 21:36 CT Head Brain wo Cont In Process Unspecified. EDMS 22:24 Assist provider with laceration repair on forehead that was 2.5 cm. or less using tl2 sutures. Set up tray. Performed by Tanmay LOPEZ Dressed with Neosporin, Patient tolerated well. 23:04 Patient did not have IV access during this emergency room visit. cc3 23:06 Patient did not have IV access during this emergency room visit. cc3 Administered Medications: No medications were administered Intake: 23:04 PO: 0ml; Total: 0ml. cc3 Output: 23:04 Urine: 0ml; Total: 0ml. cc3 Outcome: 22:51 Discharge ordered by MD. baig 23:05 Discharged to home via wheelchair, with family. cc3 23:05 Condition: stable 23:05 Patient's length of stay was not longer than 2 hours. 23:06 Discharge instructions given to patient, family, Instructed on discharge instructions, cc3 follow up and referral plans. wound care, Demonstrated understanding of instructions, follow-up care, wound care. 23:07 Patient left the ED. cc3 Signatures: Dispatcher [employer] EDMS Mariposa Mcadams rg2 Tanmay Madrigal PA PA jr8 Knox, Taylor, SHERRIE RN [email or web address] Ev Castro 2 Argenis Campbell cc3 Corrections: (The following items were deleted from the chart) 22:24 21:29 No provider procedures requiring assistance completed. [email or web address]
--- NOTE | 2018-07-17 22:52 | EDPHYS ---
Physician Documentation [facility] Name: Jannet Donis Age: 87 yrs Sex: Female : 1930 Arrival Date: 07/17/2018 Time: 21:16 Bed 4 Private MD: ED Physician Nikos Mckeon HPI: 07/17 21:58 This 87 yrs old Female presents to ER via EMS with complaints of Fall Injury, jr8 Laceration To Head. 21:58 Details of fall: The patient fell from an upright position, while standing. Onset: The jr8 symptoms/episode began/occurred acutely, today. Associated injuries: The patient sustained injury to the head, laceration, tenderness. Severity of symptoms: At their worst the symptoms were mild, in the emergency department the symptoms are unchanged. It is unknown whether or not the patient has had similar symptoms in the past. The patient has not recently seen a physician. Stated that she tripped and fell. Denies LOC . Historical: - Allergies: 21:28 No Known Allergies; tl2 - Home Meds: 21:28 bupropion HCl 300 mg Oral Tb24 1 tab twice a day [Active]; Cerovite Senior Oral tab tl2 daily [Active]; diclofenac 2% cream twice a day [Active]; donepezil 10 mg Oral TbDL 1 tab once daily [Active]; escitalopram oxalate 20 mg Oral tab 1 tab once daily [Active]; Floranex 1 million cell Oral tab three times a day [Active]; Foltanx RF 3 mg-35 mg-2 mg -90.314 mg Oral cap daily [Active]; gabapentin 300 mg Oral cap 1 cap 3 times per day [Active]; Hematinic Plus Vit/Minerals 106 mg iron- 1 mg Oral tab 1 tab once daily [Active]; hydroxyurea 500 mg Oral cap 1 cap every 3 days [Active]; Megace 400 mg/10 mL (40 mg/mL) Oral susp 5 mL once daily [Active]; midodrine 2.5 mg Oral tab 1 tab 3 times per day [Active]; omeprazole 40 mg Oral cpDR 1 cap once daily [Active]; propranolol 5 mg Oral tab once daily [Active]; tizanidine 4 mg Oral tab 1 tab at bedtime [Active]; Tramadol Oral every 6 hours [Active]; - PMHx: 21:28 ADD/ADHD; Cancer, Breast; Dementia; Depression; Hypertension; neuropathy; tl2 - Immunization history: Last tetanus immunization: unknown. - Social history:: Smoking status: Patient/guardian denies using tobacco. - Ebola Screening: : No symptoms or risks identified at this time. - Social history: Denies using. ROS: 21:58 Eyes: Negative for injury, pain, redness, and discharge, ENT: Negative for injury, jr8 pain, and discharge, Neck: Negative for injury, pain, and swelling, Cardiovascular: Negative for chest pain, palpitations, and edema, Respiratory: Negative for shortness of breath, cough, wheezing, and pleuritic chest pain, Abdomen/GI: Negative for abdominal pain, nausea, vomiting, diarrhea, and constipation, Back: Negative for injury and pain, MS/Extremity: Negative for injury and deformity, Neuro: Negative for headache, weakness, numbness, tingling, and seizure. 21:58 Skin: Positive for laceration(s), of the forehead. Exam: 21:58 Eyes: Pupils equal round and reactive to light, extra-ocular motions intact. Lids and jr8 lashes normal. Conjunctiva and sclera are non-icteric and not injected. Cornea within normal limits. Periorbital areas with no swelling, redness, or edema. ENT: Nares patent. No nasal discharge, no septal abnormalities noted. Tympanic membranes are normal and external auditory canals are clear. Oropharynx with no redness, swelling, or masses, exudates, or evidence of obstruction, uvula midline. Mucous membranes moist. Neck: Trachea midline, no thyromegaly or masses palpated, and no cervical lymphadenopathy. Supple, full range of motion without nuchal rigidity, or vertebral point tenderness. No Meningismus. Cardiovascular: Regular rate and rhythm with a normal S1 and S2. No gallops, murmurs, or rubs. Normal PMI, no JVD. No pulse deficits. Respiratory: Lungs have equal breath sounds bilaterally, clear to auscultation and percussion. No rales, rhonchi or wheezes noted. No increased work of breathing, no retractions or nasal flaring. Abdomen/GI: Soft, non-tender, with normal bowel sounds. No distension or tympany. No guarding or rebound. No evidence of tenderness throughout. Back: No spinal tenderness. No costovertebral tenderness. Full range of motion. MS/ Extremity: Pulses equal, no cyanosis. Neurovascular intact. Full, normal range of motion. Neuro: Awake and alert, GCS 15, oriented to person, place, time, and situation. Cranial nerves II-XII grossly intact. Motor strength 5/5 in all extremities. Sensory grossly intact. Cerebellar exam normal. Normal gait. 21:58 Skin: injury, laceration(s), the wound is approximately 3 cm(s), with a depth of .5 cm(s), of the forehead, that can be described as irregular, without bleeding. Vital Signs: 21:24 BP 151 / 66; Pulse 77; Resp 18; Temp 99.2(O); Pulse Ox 95% on R/A; Weight 65.77 kg; tl2 Height 5 ft. 3 in. (160.02 cm); Pain 0/10; 22:20 BP 166 / 65; Pulse 74; Resp 18; Pulse Ox 95% on R/A; tl2 21:24 Body Mass Index 25.69 (65.77 kg, 160.02 cm) tl2 Galilea Coma Score: 21:24 Eye Response: spontaneous(4). Verbal Response: oriented(5). Motor Response: obeys tl2 commands(6). Total: 15. 22:20 Eye Response: spontaneous(4). Verbal Response: oriented(5). Motor Response: obeys tl2 commands(6). Total: 15. Trauma Score (Adult): 21:24 Eye Response: spontaneous(1); Verbal Response: oriented(1); Motor Response: obeys tl2 commands(2); Systolic BP: > 89 mm Hg(4); Respiratory Rate: 10 to 29 per min(4); Galilea Score: 15; Trauma Score: 12 22:20 Eye Response: spontaneous(1); Verbal Response: oriented(1); Motor Response: obeys tl2 commands(2); Systolic BP: > 89 mm Hg(4); Respiratory Rate: 10 to 29 per min(4); Galilea Score: 15; Trauma Score: 12 Laceration: 22:48 Wound Repair of 3cm ( 1.2in ) subcutaneous laceration to forehead. Linear shaped.. jr8 Minimal bleeding noted.. Distal neuro/vascular/tendon intact. Anesthesia: Local anesthetic administered with 3 mls of 1% lidocaine w/ Epi. Wound prep: Moderate cleansing with betadine, Wound explored extensively. Skin closed with 5 5-0 Prolene using interrupted sutures and sterile technique. Patient tolerated well. MDM: 21:17 Patient medically screened. jr8 22:50 Data reviewed: vital signs, nurses notes, radiologic studies, CT scan, and as a result, jr8 I will discharge patient. Data interpreted: Pulse oximetry: on room air is 95 %. Interpretation: normal. Counseling: I had a detailed discussion with the patient and/or guardian regarding: the historical points, exam findings, and any diagnostic results supporting the discharge/admit diagnosis, radiology results, the need for outpatient follow up, a family practitioner, to return to the emergency department if symptoms worsen or persist or if there are any questions or concerns that arise at home. Response to treatment: the patient's symptoms have markedly improved after treatment. 07/17 21:20 Order name: CT Head Brain wo Cont; Complete Time: 21:58 jr8 Administered Medications: No medications were administered Disposition: 07/18 09:22 Co-signature as Attending Physician, Nikos Mckeon MD I agree with the assessment and deya plan of care. Disposition: 07/17/18 22:51 Discharged to Home. Impression: Laceration without foreign body of scalp. - Condition is Stable. - Discharge Instructions: Laceration Care, Adult. - Medication Reconciliation Form, Thank You Letter, Antibiotic Education, Prescription Opioid Use form. - Follow up: Private Physician; When: 5 - 6 days; Reason: Wound Recheck, Recheck today's complaints, Continuance of care, Staple/Suture removal, Re-evaluation by your physician. - Problem is new. - Symptoms have improved. Signatures: Dispatcher [employer] EDMO Nikos Mckeon MD MD cha Roszak, Josh, PA PA jr8 Soledad Cline RN RN tl2 Argenis Campbell cc3 Corrections: (The following items were deleted from the chart) 07/17 23:07 22:51 07/17/2018 22:51 Discharged to Home. Impression: Laceration without foreign body cc3 of scalp. Condition is Stable. Forms are Medication Reconciliation Form, Thank You Letter, Antibiotic Education, Prescription Opioid Use. Follow up: Private Physician; When: 5 - 6 days; Reason: Wound Recheck, Recheck today's complaints, Continuance of care, Staple/Suture removal, Re-evaluation by your physician. Problem is new. Symptoms have improved. jr8
[2018-07-18 00:45] VITALS: TEMP 99.2; O2SAT 95
[2018-07-18 00:46] VITALS: BP 166/65
== END 2018-07-17 23:07 | disposition home or self-care (01) ==
LOC: ER 21:15
PROC: 0JQ10ZZ Repair Face Subcutaneous Tissue and Fascia, Open Approach (ICD-10-PCS; principal; 2018-07-17)
DX: S01.81XA Laceration without foreign body of other part of head, initial encounter (principal); W01.0XXA Fall on same level from slipping, tripping and stumbling without subsequent striking against object, initial encounter; Y93.9 Activity, unspecified; Y92.9 Unspecified place or not applicable; Z85.3 Personal history of malignant neoplasm of breast; I10 Essential (primary) hypertension; F32.9 Major depressive disorder, single episode, unspecified; F03.90 Unspecified dementia, unspecified severity, without behavioral disturbance, psychotic disturbance, mood disturbance, and anxiety
CPT/HCPCS: 70450; 99284; J2001

== ENCOUNTER 2018-08-07 07:29 | Emergency (ER) | payer OTHER ==
[2018-08-07] MEDS ORDERED: NA CHLORIDE 0.9% 500 ML ONE (07:48)
[2018-08-07 07:55] LABS: Absolute Lymphocytes (CBC) 2.3 K/uL (0.7-4.9); Absolute Monocytes 1.3 K/uL (0.1-1.3); Absolute Neutrophil 8.5 K/uL (1.8-8.0); Basophils % 1.4 % (0-1.3); Eosinophils % 1.6 % (0-4.4); Lymphocytes % 18.4 % (15.3-44.8); MCH 28.3 pg (27.0-35.0); MCV 84.6 fL (80-100); MPV 6.9 fL (7.6-11.3); Monocytes % 10.6 % (3.3-12.3); RBC Red Blood Cell Count 3.67 M/uL (3.86-4.86)
[2018-08-07 08:09] LABS: Potassium 3.4 mmol/L (3.5-5.1)
--- NOTE | 2018-08-07 08:39 | RAD REPORT ---
EXAM DESCRIPTION: CT - Head Brain Wo Cont - 08/07/2018 7:54 am CLINICAL HISTORY: fall Head injury Drowsiness COMPARISON: Head Brain Wo Cont dated 07/17/2018 TECHNIQUE: All CT scans are performed using dose optimization technique as appropriate and may inclu de automated exposure control or mA/KV adjustment according to patient size. FINDINGS: No intracranial hemorrhage, hydrocephalus or extra-axial fluid collection.Moderate general ized brain atrophy is present with moderate periventricular and deep white matter chronic microvascul ar ischemic changes.No areas of brain edema or evidence of midline shift. An air-fluid level seen in left maxillary antrum. The paranasal sinuses and mastoids are otherwise cl ear. The calvarium is intact. IMPRESSION: No acute intracranial abnormality. Left maxillary sinusitis.
--- NOTE | 2018-08-07 09:23 | RAD REPORT ---
EXAM DESCRIPTION: RAD - Chest Single View - 08/07/2018 9:05 am CLINICAL HISTORY: COUGH Chest pain. COMPARISON: Chest Single View dated 04/01/2018; CHEST SINGLE VIEW dated 07/24/2010 FINDINGS: Portable technique limits examination quality. Emphysematous changes are present throughout the lungs. Calcified breast implants are noted. The hear t is upper limit normal size. Diffuse osteopenia is seen. IMPRESSION: Prominent COPD.
--- NOTE | 2018-08-07 09:36 | RAD REPORT ---
EXAM DESCRIPTION: RAD - Pelvis - 08/07/2018 9:05 am CLINICAL HISTORY: fall, pelvic pain COMPARISON: Pelvis dated 04/01/2018 FINDINGS: Bilateral hip arthroplasties noted. No acute fracture identified.
--- NOTE | 2018-08-07 09:38 | RAD REPORT ---
EXAM DESCRIPTION: RAD - Femur Right - 08/07/2018 9:05 am CLINICAL HISTORY: PAIN Fall COMPARISON: No comparisons FINDINGS: Right total hip arthroplasty is noted. No acute fracture seen. Small to moderate joint eff usion is seen in the knee with arthritic changes present.
--- NOTE | 2018-08-07 09:38 | RAD REPORT ---
EXAM DESCRIPTION: RAD - Femur Left - 08/07/2018 9:05 am CLINICAL HISTORY: PAIN Fall COMPARISON: Femur Left dated 04/01/2018 FINDINGS: Extensive hardware is present in the proximal left femur and left hip. An acute fracture i s not identified.
[2018-08-07 10:44] LABS: Urine Bacteria NONE SEEN /HPF (<20); Urine Culture Reflex Order NOT NEEDED; Urine RBC <5 /HPF (NONE SEEN)
--- NOTE | 2018-08-07 10:59 | ER ---
Nurse's Notes [facility] Name: Jannet Donis Age: 87 yrs Sex: Female : 1930 Arrival Date: 08/07/2018 Time: 07:29 Bed 6 Private MD: Diagnosis: Weakness;Fall Presentation: 08/07 07:29 Presenting complaint: EMS states: Fell while trying to get out of bed this morning. ss Patient was found on the bedside on ground. Patient reports she was on the floor for approx 2 hours, and [facility] staff reported approx 45 minutes. Fall was unwitnessed. Patient has a hx of dementia and Alzheimer's. Care prior to arrival: placed on Backboard. Mechanism of Injury: Fall out of bed. Trauma event details: Injury occurred in the [facility], Injury occurred: [facility] senior living. 07:29 Acuity: ROLLY 3 07:29 Method Of Arrival: EMS: [facility] 07:29 Transition of care: patient was received from another setting of care (long-term care facility), [facility]. Onset of symptoms was August 07, 2018. Risk Assessment: Do you want to hurt yourself or someone else? Patient reports no desire to harm self or others. Initial Sepsis Screen: Does the patient meet any 2 criteria? No. Patient's initial sepsis screen is negative. Does the patient have a suspected source of infection? No. Patient's initial sepsis screen is negative. Trauma Activation: Not Applicable Physician: ED Physician; Name: ; Notified At: ; Arrived At: Physician: General Surgeon; Name: ; Notified At: ; Arrived At: Physician: Radiology; Name: ; Notified At: ; Arrived At: Physician: Respiratory; Name: ; Notified At: ; Arrived At: Physician: Lab; Name: ; Notified At: ; Arrived At: Historical: - Allergies: 07:42 No Known Allergies; ss - Home Meds: 07:42 bupropion HCl 150 mg oral TbER 1 tab 2 times per day [Active]; carbidopa-levodopa ss 25-100 mg Oral tab 1 tab 3 times per day [Active]; donepezil 10 mg oral TbDL 1 tab once daily [Active]; escitalopram oxalate 20 mg oral tab 1 tab once daily [Active]; Foltanx RF 3 mg-35 mg-2 mg -90.314 mg oral cap daily [Active]; 07:58 calcitonin (salmon) 200 unit/actuation nasal spry daily [Active]; gabapentin 300 mg sg Oral cap 1 cap 3 times per day [Active]; Hemocyte-Plus 106 mg iron- 1 mg oral cap 1 cap twice a week, tuesday and tuesday [Active]; hydroxyurea 500 mg Oral cap 1 cap every 3 days [Active]; megestrol 400 mg/10 mL (40 mg/mL) oral susp 5 mL once daily [Active]; midodrine 2.5 mg Oral tab 1 tab 3 times per day [Active]; Tramadol Oral 1 cap every 6 hours [Active]; acetaminophen-codeine 300-30 mg Oral tab 1 tab every 4-6 hours [Active]; - PMHx: 07:42 neuropathy; Hypertension; Cancer, Breast; Dementia; Depression; Alzheimers; ss - Immunization history:: Adult Immunizations unknown. - Social history:: Smoking status: Patient/guardian denies using tobacco. - Immunization history: Last tetanus immunization: unknown. - Ebola Screening: : Patient denies exposure to infectious person Patient denies travel to an Ebola-affected area in the 21 days before illness onset. - Family history:: not pertinent. - Hospitalizations: : No recent hospitalization is reported. Screenin:49 Abuse screen: Denies threats or abuse. Denies injuries from another. Nutritional sv screening: No deficits noted. Tuberculosis screening: No symptoms or risk factors identified. Fall Risk None identified. Primary Survey: 07:35 A: Airway: patent, No supplemental oxygen in use on arrival. Oral cavity: clear, sv Trachea midline. Breathing/Chest: Respiratory pattern: regular, Respiratory effort: spontaneous, unlabored, Chest inspection: symmetrical rise and fall of the chest. Circulation: Heart tones present. Pulses: palpable right radial artery, right dorsalis pedis artery, left radial artery and left dorsalis pedis artery. Skin color: pink, Skin temperature: dry, cool. Disability Alert. 08:00 Reassessment Airway Airway Patent Oxygen No O2 Oral cavity Clear Trachea Midline sv Breathing/Chest Respiratory pattern Regular Respiratory effort Spontaneous Unlabored Chest inspection Symmetrical Circulation Heart rhythm Sinus rhythm Heart tones Present Pulses Palpable Color Dorris Temperature Dry Cool Disability Alert. Secondary Survey: 07:35 HEENT: Head Other Pt has sutures to right forehead from previous visit to the ER. sv Gastrointestinal: No deficits noted. : No deficits noted. Musculoskeletal: Range of motion: limited in left hip bruising noted to the left hip. Assessment: 10:15 Reassessment: Patient appears in no apparent distress at this time. No changes from sv previously documented assessment. Patient and/or family updated on plan of care and expected duration. Pain level reassessed. Patient is alert, oriented x 3, equal unlabored respirations, skin warm/dry/pink. Vital Signs: 07:30 BP 137 / 91; Pulse 82; Resp 24; Temp 97.8(TE); Pulse Ox 100% ; sv 08:00 BP 173 / 66; Pulse 76; Resp 21; Temp 98(TE); Pulse Ox 98% ; sv 10:00 BP 157 / 75; Pulse 81; Resp 22; Pulse Ox 100% on R/A; sv 10:51 BP 166 / 50; Pulse 85; Resp 22; Pulse Ox 98% ; sv Galilea Coma Score: 07:35 Eye Response: spontaneous(4). Verbal Response: oriented(5). Motor Response: obeys sv commands(6). Total: 15. 08:00 Eye Response: spontaneous(4). Verbal Response: oriented(5). Motor Response: obeys sv commands(6). Total: 15. 10:00 Eye Response: spontaneous(4). Verbal Response: oriented(5). Motor Response: obeys sv commands(6). Total: 15. Trauma Score (Adult): 07:35 Eye Response: spontaneous(1); Verbal Response: oriented(1); Motor Response: obeys sv commands(2); Systolic BP: > 89 mm Hg(4); Respiratory Rate: 10 to 29 per min(4); Galilea Score: 15; Trauma Score: 12 08:00 Eye Response: spontaneous(1); Verbal Response: oriented(1); Motor Response: obeys sv commands(2); Systolic BP: > 89 mm Hg(4); Respiratory Rate: 10 to 29 per min(4); Galilea Score: 15; Trauma Score: 12 10:00 Eye Response: spontaneous(1); Verbal Response: oriented(1); Motor Response: obeys sv commands(2); Systolic BP: > 89 mm Hg(4); Respiratory Rate: 10 to 29 per min(4); [place] Score: 15; Trauma Score: 12 ED Course: 07:29 Patient arrived in ED. ss 07:29 Patient has correct armband on for positive identification. Patient maintains SpO2 ss saturation greater than 95% on room air. shelter monitor on. Pulse ox on. NIBP on. 07:31 Jag Monson MD is Attending Physician. rn 07:32 Triage completed. ss 07:40 Chico Parada, RN is Primary Nurse. sg 07:40 Arm band placed on right wrist. sv 07:40 Initial lab(s) drawn, by me, sent to lab. Inserted saline lock: 20 gauge in right sv forearm, using aseptic technique. Blood collected. Flushed right forearm with 5 ml normal saline. 07:49 Door closed. Warm blanket given. Head of bed elevated. sv 07:49 Thermoregulation: warm blanket given to patient. sv 07:52 CT completed. Patient tolerated procedure well. Patient moved to CT via stretcher. sj Patient moved back from CT. 07:53 CT Head Brain wo Cont In Process Unspecified. EDMS 09:05 XRAY Chest (1 view) In Process Unspecified. EDMS 09:05 XRAY Pelvis In Process Unspecified. EDMS 09:05 XRAY Femur RIGHT In Process Unspecified. EDMS 09:05 XRAY Femur LEFT In Process Unspecified. EDMS 10:14 Primary Nurse role handed off by Chico Parada, SHERRIE sv 10:14 Ivory Larson, SHERRIE is Primary Nurse. sv 10:15 Straight cath inserted, using sterile technique, 16 Fr. Specimen obtained. Returned sv clear yellow urine. Patient tolerated well. 10:53 Urine Dipstick--Ancillary (enter results) Sent. sv 11:09 No provider procedures requiring assistance completed. IV discontinued, intact, sv bleeding controlled, No redness/swelling at site. Pressure dressing applied. Administered Medications: 07:50 Drug: NS 0.9% 500 ml Route: IV; Rate: bolus; Site: right forearm; sv 08:30 Follow up: Response: No adverse reaction; IV Status: Completed infusion; IV Intake: sv 500ml Intake: 07:35 PO: 0ml; Total: 0ml. sv 08:30 IV: 500ml; Total: 500ml. sv Output: 07:35 Urine: 0ml; Total: 0ml. sv 08:00 Urine: 300ml (Straight Cath); Total: 300ml. sv Outcome: 10:59 Discharge ordered by . rn 11:09 Discharged to home via wheelchair, with family. sv 11:09 Condition: stable 11:09 Discharge instructions given to patient, family, Instructed on discharge instructions, follow up and referral plans. Demonstrated understanding of instructions, follow-up care. 11:10 Patient's length of stay was not longer than 2 hours. due to resultsPatient's length of sv stay extended due to 11:10 Patient left the ED. sv Signatures: Dispatcher [employer] Ivory Rhodes RN RN sv Gay, Steven, RN RN sg Jones, Susan sj Nieto, Roman, MD MD rn Smirch, Shelby, RN RN ss Corrections: (The following items were deleted from the chart) 07:33 07:29 Care prior to arrival: None. ss ss
--- NOTE | 2018-08-07 11:00 | EDPHYS ---
Physician Documentation [facility] Name: Jannet Donis Age: 87 yrs Sex: Female : 1930 Arrival Date: 08/07/2018 Time: 07:29 Bed 6 Private MD: ED Physician Jag Monson HPI: 08/07 07:41 This 87 yrs old Female presents to ER via EMS with complaints of Fall Injury. rn 07:41 Onset: The symptoms/episode began/occurred at an unknown time. Associated injuries: The rn patient sustained no obvious injury. Severity of symptoms: At their worst the symptoms were moderate, in the emergency department the symptoms are unchanged. The patient has experienced similar episodes in the past. Reports falling a lot recently, unknown reason, states ended up on floor for unknown amount of time this morning, her call light and screaming didn't work, finally found after unknown amount of time, reports couldn't get up on her own, reports always in generalized pain but nothing really knew hurts, mild cough, no fever, no urinary symptoms, reports feels like doesn't drink enough fluids. . Historical: - Allergies: 07:42 No Known Allergies; ss - Home Meds: 07:42 bupropion HCl 150 mg oral TbER 1 tab 2 times per day [Active]; carbidopa-levodopa ss 25-100 mg Oral tab 1 tab 3 times per day [Active]; donepezil 10 mg oral TbDL 1 tab once daily [Active]; escitalopram oxalate 20 mg oral tab 1 tab once daily [Active]; Foltanx RF 3 mg-35 mg-2 mg -90.314 mg oral cap daily [Active]; 07:58 calcitonin (salmon) 200 unit/actuation nasal spry daily [Active]; gabapentin 300 mg sg Oral cap 1 cap 3 times per day [Active]; Hemocyte-Plus 106 mg iron- 1 mg oral cap 1 cap twice a week, tuesday and tuesday [Active]; hydroxyurea 500 mg Oral cap 1 cap every 3 days [Active]; megestrol 400 mg/10 mL (40 mg/mL) oral susp 5 mL once daily [Active]; midodrine 2.5 mg Oral tab 1 tab 3 times per day [Active]; Tramadol Oral 1 cap every 6 hours [Active]; acetaminophen-codeine 300-30 mg Oral tab 1 tab every 4-6 hours [Active]; - PMHx: 07:42 neuropathy; Hypertension; Cancer, Breast; Dementia; Depression; Alzheimers; ss - Immunization history:: Adult Immunizations unknown. - Social history:: Smoking status: Patient/guardian denies using tobacco. - Immunization history: Last tetanus immunization: unknown. - Ebola Screening: : Patient denies exposure to infectious person Patient denies travel to an Ebola-affected area in the 21 days before illness onset. - Family history:: not pertinent. - Hospitalizations: : No recent hospitalization is reported. ROS: 07:41 Constitutional: Negative for fever, chills, and weight loss, Eyes: Negative for injury, rn pain, redness, and discharge, Neck: Negative for injury, pain, and swelling, Cardiovascular: Negative for chest pain, palpitations, and edema, Respiratory: + mild cough, no sob Abdomen/GI: Negative for abdominal pain, nausea, vomiting, diarrhea, and constipation, Back: Negative for injury and pain, MS/Extremity: + bilateral hip pain Skin: Negative for injury, rash, and discoloration, Neuro: + generalized weakness, no focal neurological complaint Exam: 07:41 Constitutional: Thin female, no acute distress Head/Face: + healing right forehead rn sutured laceration, mild erythema surrounding, no fluctuance or drainage. Eyes: Pupils constricted, no nystagmus Neck: Trachea midline, no thyromegaly or masses palpated, and no cervical lymphadenopathy. Supple, full range of motion without nuchal rigidity, or vertebral point tenderness. No Meningismus. Cardiovascular: Regular rate and rhythm with a normal S1 and S2. No gallops, murmurs, or rubs. Normal PMI, no JVD. No pulse deficits. Respiratory: mild tachypnea, diminished breath sounds bilateral Abdomen/GI: soft, non-tender, non-distended MS/ Extremity: Pulses equal, no cyanosis. Neurovascular intact. Mild painful ROM right hip, no deformity Neuro: Awake, alert, moves all 4 extremities, sensation intact, oriented to person, place, and situation. Making jokes and laughing. Vital Signs: 07:30 BP 137 / 91; Pulse 82; Resp 24; Temp 97.8(TE); Pulse Ox 100% ; sv 08:00 BP 173 / 66; Pulse 76; Resp 21; Temp 98(TE); Pulse Ox 98% ; sv 10:00 BP 157 / 75; Pulse 81; Resp 22; Pulse Ox 100% on R/A; sv 10:51 BP 166 / 50; Pulse 85; Resp 22; Pulse Ox 98% ; sv [place] Coma Score: 07:35 Eye Response: spontaneous(4). Verbal Response: oriented(5). Motor Response: obeys sv commands(6). Total: 15. 08:00 Eye Response: spontaneous(4). Verbal Response: oriented(5). Motor Response: obeys sv commands(6). Total: 15. 10:00 Eye Response: spontaneous(4). Verbal Response: oriented(5). Motor Response: obeys sv commands(6). Total: 15. Trauma Score (Adult): 07:35 Eye Response: spontaneous(1); Verbal Response: oriented(1); Motor Response: obeys sv commands(2); Systolic BP: > 89 mm Hg(4); Respiratory Rate: 10 to 29 per min(4); [place] Score: 15; Trauma Score: 12 08:00 Eye Response: spontaneous(1); Verbal Response: oriented(1); Motor Response: obeys sv commands(2); Systolic BP: > 89 mm Hg(4); Respiratory Rate: 10 to 29 per min(4); [place] Score: 15; Trauma Score: 12 10:00 Eye Response: spontaneous(1); Verbal Response: oriented(1); Motor Response: obeys sv commands(2); Systolic BP: > 89 mm Hg(4); Respiratory Rate: 10 to 29 per min(4); [place] Score: 15; Trauma Score: 12 MDM: 07:31 Patient medically screened. rn 10:58 Differential diagnosis: closed head injury, contusion, fracture, sprain, strain. Data rn reviewed: vital signs, nurses notes, lab test result(s), EKG, radiologic studies, CT scan, plain films, and as a result, I will discharge patient. Counseling: I had a detailed discussion with the patient and/or guardian regarding: the historical points, exam findings, and any diagnostic results supporting the discharge/admit diagnosis, lab results, radiology results, the need for outpatient follow up, to return to the emergency department if symptoms worsen or persist or if there are any questions or concerns that arise at home. Special discussion: I discussed with the patient/guardian in detail that at this point there is no indication for admission to the hospital. It is understood, however, that if the symptoms persist or worsen the patient needs to return immediately for re-evaluation. Based on the history and exam findings, there is no indication for further emergent testing or inpatient evaluation. I discussed with the patient/guardian the need to see the primary care provider for further evaluation of the symptoms. ED course: Pt feels at baseline, son here, states shouldn't have been transported, has been falling a lot recently, comes here, neg eval, goes home, states 911 called without his permission, she appears at baseline for him, requests dc home and he will take her, neg ct head and xrays.. 08/07 07:40 Order name: CBC with Diff; Complete Time: 09:10 rn 08/07 07:40 Order name: Basic Metabolic Panel; Complete Time: 09:10 rn 08/07 07:40 Order name: Urine Microscopic Only rn 08/07 07:40 Order name: CT Head Brain wo Cont; Complete Time: 09:10 rn 08/07 10:13 Order name: Urine Dipstick--Ancillary (enter results) em1 08/07 10:13 Order name: Urine Dipstick-Ancillary EDMS 08/07 07:40 Order name: IV Start; Complete Time: 07:50 rn 08/07 07:40 Order name: Urine Dipstick-Ancillary (obtain specimen); Complete Time: 10:09 rn 08/07 07:40 Order name: XRAY Chest (1 view); Complete Time: 09:41 rn 08/07 07:40 Order name: XRAY Pelvis; Complete Time: 09:41 rn 08/07 07:40 Order name: XRAY Femur RIGHT; Complete Time: 09:41 rn 08/07 07:40 Order name: XRAY Femur LEFT; Complete Time: 09:41 rn Administered Medications: 07:50 Drug: NS 0.9% 500 ml Route: IV; Rate: bolus; Site: right forearm; sv 08:30 Follow up: Response: No adverse reaction; IV Status: Completed infusion; IV Intake: sv 500ml Disposition: 08/07/18 10:59 Discharged to Home. Impression: Weakness, Fall. - Condition is Stable. - Discharge Instructions: Fall Prevention in the Home, Weakness. - Medication Reconciliation Form, Thank You Letter, Antibiotic Education, Prescription Opioid Use form. - Follow up: Private Physician; When: As needed; Reason: Recheck today's complaints, Re-evaluation by your physician. - Problem is an ongoing problem. - Symptoms have improved. Signatures: Dispatcher [employer] Ivory Rhodes RN RN sv Gay, Steven, RN RN sg Nieto, Roman, MD MD rn Smirch, Shelby, RN RN ss Corrections: (The following items were deleted from the chart) 11:10 10:59 08/07/2018 10:59 Discharged to Home. Impression: Weakness; Fall. Condition is sv Stable. Forms are Medication Reconciliation Form, Thank You Letter, Antibiotic Education, Prescription Opioid Use. Follow up: Private Physician; When: As needed; Reason: Recheck today's complaints, Re-evaluation by your physician. Problem is an ongoing problem. Symptoms have improved. rn
[2018-08-07 11:18] VITALS: TEMP 98
[2018-08-07 11:20] VITALS: BP 166/50; O2SAT 98
[2018-08-07 20:13] LABS: Urine Blood NEGATIVE (NEG); Urine Glucose NEGATIVE (NEG); Urine Protein NEGATIVE (NEG)
== END 2018-08-07 11:10 | disposition home or self-care (01) ==
LOC: ER 07:29
DX: R53.1 Weakness (principal); W18.30XA Fall on same level, unspecified, initial encounter; Y93.9 Activity, unspecified; Y92.129 Unspecified place in nursing home as the place of occurrence of the external cause; Z85.3 Personal history of malignant neoplasm of breast; I10 Essential (primary) hypertension; F32.9 Major depressive disorder, single episode, unspecified; F02.80 Dementia in other diseases classified elsewhere, unspecified severity, without behavioral disturbance, psychotic disturbance, mood disturbance, and anxiety; G30.9 Alzheimer's disease, unspecified
CPT/HCPCS: 36415; 51702; 70450; 71045; 72170; 80048; 81003; 81015; 85025; 96360; 99285